=== PATIENT | female | born 1975 | race Caucasian/White ===

== ENCOUNTER → 2017-11-12 16:19 | Outpatient (CLI) | payer OTHER, SELFPAY ==
[2017-11-14 17:16] LABS: Measles Antibodies, IgG <25.0 AU/mL (Immune >29.9); Mumps Abs, IgG <9.0 AU/mL (Immune >10.9)
== END ==
PROVIDERS: PCP Nurse Practitioner Family; Visit Provider Nurse Practitioner Family
DX: Z11.59 Encounter for screening for other viral diseases (principal)
CPT/HCPCS: 36415; 86735; 86762; 86765

== ENCOUNTER → 2017-11-19 13:54 | Outpatient (CLI) | payer OTHER, SELFPAY ==
--- NOTE | 2017-11-19 14:03 | XR_ITS ---
XR chest employee HISTORY: ITS.REASON: TB SCREENING FOR RN CLINICALS ORDERING PHYSICIAN: Juan Alberto Almanza MD PATIENT AGE: 42 years COMPARISON: None available FINDINGS: The cardiomediastinal silhouette and pulmonary vascularity are within normal limits. The lungs are clear without infiltrates, suspicious nodules, or pleural effusions. No acute bony abnormalities. IMPRESSION: Negative chest, no acute finding
== END ==
PROVIDERS: PCP Internal Medicine Adolescent Medicine; Visit Provider Internal Medicine Adolescent Medicine
DX: Z11.1 Encounter for screening for respiratory tuberculosis (principal)

== ENCOUNTER → 2018-01-13 09:30 | Outpatient (CLI) | payer OTHER, SELFPAY ==
--- NOTE | 2018-01-13 10:00 | US_ITS ---
US liver HISTORY: ITS.REASON: ELEVATED LIVER ENZYMES ORDERING PHYSICIAN: Miley Wells PATIENT AGE: 42 years COMPARISON: None FINDINGS: PANCREAS:Unremarkable. No obvious mass or abnormal fluid collection. No ductal dilatation LIVER:There is diffuse increased echogenicity of the liver with decreased through transmission of sound consistent with hepatic steatosis. No focal liver lesion or biliary dilatation is evident. RIGHT KIDNEY:Unremarkable. Normal size and echogenicity. No hydronephrosis GALLBLADDER:No gallstones, gallbladder wall thickening, pericholecystic fluid, or biliary dilatation. Gallbladder did appear somewhat contracted despite the patient returning for second look 4 hours later. IMPRESSION: 1. Fatty liver. 2. No gallstones apparent. Small gallbladder
== END ==
PROVIDERS: PCP Internal Medicine Adolescent Medicine; Visit Provider Nurse Practitioner Family
DX: R74.8 Abnormal levels of other serum enzymes (principal); E11.9 Type 2 diabetes mellitus without complications
CPT/HCPCS: 76705

== ENCOUNTER → 2018-03-10 13:19 | Outpatient (CLI) | payer OTHER, SELFPAY ==
--- NOTE | 2018-03-10 13:21 | US_ITS ---
US thyroid HISTORY: A large thyroid gland, trouble swallowing ITS.REASON: THYROMEGLY ORDERING PHYSICIAN: Holly Tarango PATIENT AGE: 43 years FINDINGS: Right lobe: The right lobe measures 4.2 x 1 x 1.7 cm. There is a 14 x 10 mm isoechoic nodule well circumscribed along the lower pole. This may contain some minimal calcification superiorly. Left lobe: 3.9 x 1.3 x 1.5 cm. 5 mm slightly hypoechoic nodule in the mid polar region. Isthmus: Unremarkable Isoechogenicity noted posterior to the right lobe of the thyroid gland measuring 15 x 6 mm and may represent a parathyroid gland IMPRESSION: Bilateral thyroid nodules as described above with low level of suspicion for malignancy. Consider 6 month follow-up to confirm stability
== END ==
PROVIDERS: PCP Internal Medicine Adolescent Medicine; Visit Provider Nurse Practitioner Family
DX: E04.9 Nontoxic goiter, unspecified (principal)
CPT/HCPCS: 76536

== ENCOUNTER → 2019-09-06 09:39 | Outpatient (CLI) | payer OTHER, SELFPAY ==
[2019-09-06 14:28] LABS: Alanine Aminotransferase 80 U/L (12-78); Albumin Level 4.1 gm/dL (3.4-5.0); Albumin/Globulin Ratio 1.3 (1.1-1.8); Alkaline Phosphatase 108 U/L (46-116); Anion Gap 14.2 mEq/L (5-15); Aspartate Amino Transferase 33 U/L (15-37); Basophils # 0.1 K/mm3 (0-0.2); Basophils % 0.7 % (0.1-2.0); Bilirubin,Total 0.8 mg/dL (0.2-1.0); Blood Urea Nitrogen 13 mg/dL (7-18); Calcium 9.2 mg/dL (8.5-10.1); Carbon Dioxide 26 mmol/L (21.0-32.0); Chloride 105 mmol/L (98-107); Chol/HDL Ratio 6.7 (1-3.5); Cholesterol 193 mg/dL (140-200); Creatinine,Serum 0.69 mg/dL (0.55-1.02); Eosinophils # 0.3 K/mm3 (0.0-0.4); Eosinophils % 2.9 % (0.1-12.0); Estimated Glomerular Filt Rate 93 ml/min (>60); GFR (African American) 112 ML/MIN (>60); Globulin 3.1 gm/dl (1.3-3.2); Glucose 168 mg/dL (74-106); HDL Cholesterol 29 mg/dL (29-89); Hematocrit 46.8 % (37.0-47.0); Hemoglobin 15.7 g/dL (12.2-16.2); LDL Cholesterol 129 mg/dL (0-130); Lymphocytes # 3.5 K/mm3 (0.7-4.5); Lymphocytes % 40.4 % (10-50); Mean Corpuscular HGB Conc 33.4 g/dL (31.8-35.4); Mean Corpuscular Hemoglobin 30.2 pg (27.0-31.2); Mean Corpuscular Volume 90.3 fl (81-99); Mean Platelet Volume 9.8 fl (7.4-10.4); Monocytes # 0.4 K/mm3 (0.1-1.0); Monocytes % 4.1 % (1.7-9.3); Neutrophils # 4.5 K/mm3 (1.8-7.8); Neutrophils % 51.9 % (37.0-80.0); Platelet Count 222 K/mm3 (142-424); Potassium 4.2 mmoL/L (3.5-5.1); Red Blood Count 5.19 M/mm3 (4.20-5.40); Red Cell Distribution Width 12.8 % (11.5-17.5); Sodium 141 mmol/L (136-145); Total Protein,Serum 7.2 gm/dL (6.4-8.2); Triglycerides 175 mg/dL (30-200); VLDL Cholesterol 35 mg/dL (0-40); White Blood Count 8.6 K/mm3 (4.8-10.8)
[2019-09-06 16:20] LABS: Hemoglobin A1C 9.2 % (0.0-7.0)
== END ==
PROVIDERS: PCP Nurse Practitioner Family; Visit Provider Nurse Practitioner Family
DX: E11.9 Type 2 diabetes mellitus without complications (principal); E04.1 Nontoxic single thyroid nodule; E04.9 Nontoxic goiter, unspecified; R63.4 Abnormal weight loss; K92.1 Melena
CPT/HCPCS: 36415; 80053; 80061; 83036; 84443; 85025

== ENCOUNTER 2020-06-19 14:18 | Emergency (ER) | payer MEDICAID, SELFPAY ==
--- NOTE | 2020-06-19 14:47 | HMH.EDUTC ---
[facility] [place] Disposition Clinical Impression: Strep throat Disposition: Home, Self-Care Condition on Discharge: Good Instructions: DI for Strep Throat, Strep Throat Additional Instructions: Drink plenty of fluids. Take tylenol or ibuprofen for pain or fever. Take the medications as directed. Follow up with your regular doctor. GO TO THE ER FOR ANY WORSENING SYMPTOMS Throw your tooth brush away and get a new one. Prescriptions: Amoxicillin/Potassium Clav [Augmentin 875-125 Tablet] 1 tab PO Q12H 10 Days #20 tab Transmission Status: Pending to [facility] predniSONE [Deltasone 10mg tablet] 10 mg PO BID 3 Days #6 tab Transmission Status: Pending to [facility] Fluconazole [Diflucan 150mg tab] 150 mg PO ONCE #1 tab Transmission Status: Pending to [facility] Referrals: Holly Tarango APRN [Primary Care Provider] - Time of Disposition: 15:00 Medical Decision Making - Medical Records Medical records reviewed: No: I reviewed the patient's medical records. - Manjinder Inquiry Pt receiving controlled substance: No Vital Signs: 06/19/20 14:50 Temperature 100.8 F H Temperature Source Oral Pulse Rate [Right Brachial] 108 H Respiratory Rate 20 Blood Pressure [Right Arm] 136/94 H Blood Pressure Mean [Right Arm] 108 Blood Pressure Source [Right Arm] Automatic Cuff Blood Pressure Position [Right Arm] Sitting 02 Sat by Pulse Oximetry 98 Oxygen Delivery Method Room Air - Lab Data Lab results reviewed: Yes: I reviewed the patient's lab results. [facility] [place] HPI - General Stated complaint: Sore throat; fever;chills;body aches Time Seen by Provider: 06/19/20 14:47 - History of Present Illness Provider Complaint: She c/o sore throat since yesterday. She has been running a fever and feeling very bad. She denies any known exposure to COVID-19. - Related Data Previous Rx's Medication Instructions Recorded Amoxicillin/Potassium Clav 1 tab PO Q12H 10 Days #20 tab 06/19/20 [Augmentin 875-125 Tablet] Fluconazole [Diflucan 150mg tab] 150 mg PO ONCE #1 tab 06/19/20 predniSONE [Deltasone 10mg tablet] 10 mg PO BID 3 Days #6 tab 06/19/20 Allergies Allergy/AdvReac Type Severity Reaction Status Date / Time azithromycin [From Zithromax] Allergy Verified 06/19/20 14:55 bupropion [From Wellbutrin] Allergy Verified 06/19/20 14:55 meloxicam [From Mobic] Allergy Verified 06/19/20 14:55 methocarbamol [From Robaxin] Allergy Verified 06/19/20 14:55 pregabalin [From Lyrica] Allergy Verified 06/19/20 14:55 [facility] History - Hepatitis A Screen Attestation statement:: This patient has been screened for Hepatitis A risk factors. I have reviewed the patient's past medical history: Yes ROS Obtained: Yes All systems reviewed & no additional complaints - Constitutional Constitutional: Reports chills, Reports fever(s), Reports poor appetite, Reports malaise - Eyes Eyes: Denies eye discharge - ENT Ears, Nose, Mouth, and Throat: Reports as per HPI - Cardiovascular Cardiovascular: Denies chest pain - Respiratory Respiratory: No chest congestion, No cough Physical Exam - General General appearance: alert, in no apparent distress - Head Head exam: atraumatic, normocephalic, normal inspection - Eye Eye exam: Present: normal appearance, PERRL, EOMI - ENT ENT exam: Present: mucous membranes moist, normal external ear exam - Expanded ENT Exam TM/Canal exam: Bilateral TM: erythema, bulging, effusion Mouth exam: Present: normal external inspection Teeth exam: Present: normal inspection Throat exam: Present: tonsillar erythema, tonsillomegaly, tonsillar exudate. Absent: R peritonsillar mass, L peritonsillar mass - Neck Neck exam: Present: normal inspection, full ROM, trachea midline. Absent: meningismus, lymphadenopathy - Chest Chest inspection: Present: normal inspection, symmetric chest wall rise. Absent: tenderness - Respiratory Respiratory exam: Present: no
[2020-06-19 14:50] VITALS: BP 136/94; PULSE 108; RESP 20; TEMP 38.2; O2SAT 98; BMI 29.0
[2020-06-19 15:00] LABS: UTC Strep Screen (Rapid) Positive (Negative)
[2020-06-19 15:01] VITALS: BP 136/94; PULSE 108; RESP 20; TEMP 38.2; O2SAT 98
== END 2020-06-19 15:05 | disposition home or self-care (01) ==
PROVIDERS: Emergency Provider Nurse Practitioner Family; PCP Nurse Practitioner Family
DX: J02.0 Streptococcal pharyngitis (principal); Z88.1 Allergy status to other antibiotic agents; Z88.8 Allergy status to other drugs, medicaments and biological substances
CPT/HCPCS: 87880; 99201

== ENCOUNTER → 2021-02-28 11:32 | Outpatient (CLI) | payer OTHER, SELFPAY ==
[2021-02-28 13:52] LABS: Basophils # 0.1 K/mm3 (0-0.2); Basophils % 1.1 % (0.1-2.0); Eosinophils # 0.3 K/mm3 (0.0-0.4); Eosinophils % 2.8 % (0.1-12.0); Hematocrit 45.6 % (37.0-47.0); Hemoglobin 15.7 g/dL (12.2-16.2); Lymphocytes # 3.1 K/mm3 (0.7-4.5); Lymphocytes % 34.6 % (10-50); Mean Corpuscular HGB Conc 34.5 g/dL (31.8-35.4); Mean Corpuscular Hemoglobin 31.3 pg (27.0-31.2); Mean Corpuscular Volume 90.7 fl (81-99); Monocytes # 0.3 K/mm3 (0.1-1.0); Monocytes % 3.2 % (1.7-9.3); Neutrophils # 5.2 K/mm3 (1.8-7.8); Neutrophils % 58.3 % (37.0-80.0); Platelet Count 224 K/mm3 (142-424); Red Blood Count 5.03 M/mm3 (4.20-5.40); Red Cell Distribution Width 13.4 % (11.5-17.5); White Blood Count 8.9 K/mm3 (4.8-10.8)
[2021-02-28 14:30] LABS: Chloride 100 mmol/L (98-107); Potassium 4.7 mmoL/L (3.5-5.1); Sodium 137 mmol/L (136-145)
[2021-02-28 14:32] LABS: Blood Urea Nitrogen 12 mg/dl (7-17); Estimated Glomerular Filt Rate 68 ml/min (>60); GFR (African American) 82 ML/MIN (>60)
[2021-02-28 14:33] LABS: Alanine Aminotransferase 84 U/L (12-78); Albumin Level 4.9 g/dl (3.5-5.0); Albumin/Globulin Ratio 1.9 (1.1-1.8); Alkaline Phosphatase 91 U/L (38-126); Anion Gap 16.7 mEq/L (5-15); Aspartate Amino Transferase 57 U/L (14-36); Carbon Dioxide 25 mmol/L (22.0-30.0); Globulin 2.6 g/dL (1.3-3.2); Glucose 328 mg/dl (74-100); Total Protein,Serum 7.5 g/dl (6.3-8.2)
[2021-02-28 15:13] LABS: Hemoglobin A1C 8.9 % (4.0-6.0)
[2021-02-28 15:30] LABS: Activated Partial Thrombo Time 24.9 seconds (22.8-30.6); Prothrombin Time 10.7 seconds (10.1-12.5)
[2021-02-28 16:24] LABS: Erythrocyte Sedimentation Rate 89 mm/hr (0-20)
== END ==
PROVIDERS: Visit Provider Internal Medicine Adolescent Medicine
DX: E11.9 Type 2 diabetes mellitus without complications (principal); I10 Essential (primary) hypertension
CPT/HCPCS: 36415; 80053; 83036; 85025; 85610; 85651; 85730; 86140

== ENCOUNTER → 2021-03-06 07:05 | Outpatient (CLI) | payer OTHER, SELFPAY ==
--- NOTE | 2021-03-06 07:12 | CT_ITS ---
PROCEDURE: CT FACIAL BONES WO CON CLINICAL HISTORY: FACIAL PAIN Facial swelling on lt side of face and jaw COMPARISON: No exams were available for comparison TECHNIQUE: Axial images obtained with sagittal and coronal reformats. All CT scans at the facility use one or more dose reduction, viz: automated exposure control, ma/kV adjustment per patient size (including targeted exams where dose is matched to indication, i.e. head), or iterative reconstruction technique. FINDINGS: Mild mucosal thickening left maxillary sinus with small retention cyst in the roof and floor of the left maxillary sinus. There is mild leftward nasal septal deviation. No abscess or soft tissue mass apparent. There are few small cervical lymph nodes. The maxilla is edentulous. The orbits have an unremarkable appearance. IMPRESSION: No acute finding. Minimal mucosal thickening left maxillary sinus with small retention cyst. No air-fluid levels or other acute anomaly apparent Dictated by: Ion Najera MD 03/07/2021 06:06 Ion Najera MD in [place] 03/07/2021 06:06
== END ==
PROVIDERS: PCP Nurse Practitioner Family; Visit Provider Internal Medicine Adolescent Medicine
DX: R51.9 Headache, unspecified (principal)
CPT/HCPCS: 70486

== ENCOUNTER → 2021-03-15 08:54 | Outpatient (CLI) | payer OTHER, SELFPAY ==
[2021-03-15 13:59] LABS: Basophils # 0.1 K/mm3 (0-0.2); Basophils % 1.1 % (0.1-2.0); Eosinophils # 0.3 K/mm3 (0.0-0.4); Eosinophils % 2.8 % (0.1-12.0); Hemoglobin 14.6 g/dL (12.2-16.2); Lymphocytes # 2.9 K/mm3 (0.7-4.5); Lymphocytes % 30.5 % (10-50); Mean Corpuscular HGB Conc 32.5 g/dL (31.8-35.4); Mean Corpuscular Hemoglobin 30.2 pg (27.0-31.2); Mean Corpuscular Volume 92.8 fl (81-99); Mean Platelet Volume 9.1 fl (7.4-10.4); Monocytes # 0.4 K/mm3 (0.1-1.0); Monocytes % 4.2 % (1.7-9.3); Neutrophils # 5.8 K/mm3 (1.8-7.8); Neutrophils % 61.4 % (37.0-80.0); Platelet Count 204 K/mm3 (142-424); Red Blood Count 4.85 M/mm3 (4.20-5.40); Red Cell Distribution Width 12.6 % (11.5-17.5); White Blood Count 9.4 K/mm3 (4.8-10.8)
[2021-03-15 14:03] LABS: Chloride 102 mmol/L (98-107); Sodium 137 mmol/L (136-145)
[2021-03-15 14:04] LABS: Potassium 4.2 mmoL/L (3.5-5.1)
[2021-03-15 14:06] LABS: Anion Gap 15.2 mEq/L (5-15); Blood Urea Nitrogen 10 mg/dl (7-17); Carbon Dioxide 24 mmol/L (22.0-30.0); Estimated Glomerular Filt Rate 133 ml/min (>60); GFR (African American) 161 ML/MIN (>60)
[2021-03-15 14:07] LABS: Calcium 9.4 mg/dl (8.4-10.2); Glucose 290 mg/dl (74-100)
[2021-03-15 14:15] LABS: C-Reactive Protein 10.3 mg/L (0-4)
[2021-03-15 14:34] LABS: Erythrocyte Sedimentation Rate 7 mm/hr (0-20)
== END ==
PROVIDERS: Visit Provider Nurse Practitioner Family
DX: R70.0 Elevated erythrocyte sedimentation rate (principal)
CPT/HCPCS: 36415; 80048; 85025; 85651; 86140

== ENCOUNTER 2023-10-29 09:45 | Outpatient (RCR) | payer OTHER, SELFPAY ==
--- NOTE | 2023-10-29 11:02 | HMH.PTOPEV ---
PT Outpatient Evaluation Rehab PT Outpatient Evaluation Start: 10/29/23 10:00 Freq: Status: Active Protocol: Document 10/29/23 10:00 PDESEROUX (Rec: 10/29/23 11:02 PDESEROUX [id number]) E-signed By Yaya Espinoza, PT Outpatient Therapy Subjective History Subjective History Pt. is a 48 year old female who presents to [facility] Outpatient Physical Therapy Services in [place] for the initial evaluation this date(10/29/23) w/ c/o subacute and constant RLE knee P!, edema, and catching/locking of insidious onset 4 months ago. Recent diagnostic imaging(MRI) positive for two meniscus tears per pt. report. Pt. denies having injections for current complaint. Pt. reports having no symptom relief w/ initial prescribed Tylenol, stated, it didn't touch my pain. Pt. reports being scheduled and then rescheduled three different times in Sep. , then Oct., and then Nov. for surgery of the RLE knee, but has been denied secondary to insurance. Pt. reports asking her MD to trial Physical Therapy for symptom relief. Pt . reports having an increase in catching or locking in the RLE knee w/ initial standing or ambulation after prolonged sitting. Pt. reports the RLE knee getting real sore and swollen after having a work shift or being on my feet all day. Pt. reports having some symptom relief w/ icing and elevation. Pt. reports current occupational duties at [employer] in [place]. Current medications includes Neurontin/Soma/ Adavan PRN, and Paxil/Mounjaro daily. PMH includes S/P lumbar spine discectomy, S/P removal of a Seroma lumbar spine, Hypertension, Hyperlipidemia, Hysterectomy, DM-II, Anxiety disorder, Depression disorder, and removal of kidney stones. New diagnosis of cancer in past 12 No months? Chief Complaint Pain,Spasms,Stiff,Clicks, Swelling,Catches/Locks,Gives out/Unstable,Paresthesia, Weakness Symptom Type Ache,Throb,Sharp,Dull,Stabbing ,Burning,Numbness,Shooting Symptoms Relieved By Rest/Positioning,Ice,Elevation Symptoms Aggravated By Standing,Bending/Stooping, Physical Activity,Twisting, Walking Prior Functional Limitations None Current Functional Limitations Housework,Standing,Sitting, Squatting,Recreation Activity, Walking,Stairs,Balance,Bending /Stooping Symptom Description Constant and Continuous, Intermittent,Activity Dependent Level of pain today (0-10) 2 Pain scale - at its best (0-10) 1 Pain scale - at its worst (0-10) 10 Hip/Knee Eval Gait Observation General Gait Pattern Observation Antalgic Gait,Decrease Weight Bear (R),Decrease Stride Lngth (L) Assistive Device Assistive Devices None / NA Palpation Tenderness right Knee Palpation Finding Tenderness,Spasm,Trigger Point ,Muscle Guarding Knee Palpation Overall Comment grade 4 +TTP gastroc/HS tendons/lateral and medial jt. line/IT band MMT Hip Flexion Strength Grade 3+ Fair+ Hip Abduction Strength Grade 3+ Fair+ Hip Adduction Strength Grade 3+ Fair+ Hip Extension Strength Grade 4- Good- Gluteus Jose Angel Strength Grade 4- Good- Hip External Rotation Strength Grade 3+ Fair+ Hip Internal Rotation Strength Grade 3+ Fair+ Knee Extension Strength Grade 3+ Fair+ Knee Flexion Strength Grade 3+ Fair+ Knee Extensors Muscle Tone Description Severe Hypertonicity Knee Flexors Muscle Tone Description Severe Hypertonicity ROM Knee Extension Active Range of Motion ( +15 degrees) Knee Extension Passive Range of Motion ( +9 degrees) Knee Flexion Active Range of Motion ( 118 degrees) Knee Flexion Passive Range of Motion ( 121 degrees) Knee ROM Limitations Soft Tissue Tightness, Contracture,Muscle Tone,Pain Sensation LE Dermatome Level L4 Comment decreased light touch sensation in RLE compared to LLE Special Tests Knee Alexi Test Positive Right Outpatient Therapy Assessment Impairments Problems/Impairmments Palpation Tenderness,Impaired Range of Motion,Impaired Strength,Impaired Transfers, Impaired Gait Pattern,Impaired Walking,Impaired Standing, Impaired Sitting,Impaired Household Care,Impaired Stair Climbing,Impaired Incline Stepping,Impaired Stepping on Uneven Surface,Impaired Squatting,Impaired Bending, Impaired Work Activities, Increased Edema,Subjective C/O Pain,Impaired Self Care/Self Management Prognosis Rehab Potential Good Comment w/ HEP compliancy Clinical Impression Consistent with Diagnosis Yes Consistent with RLE meniscal tear Short Term Goals Number of Weeks 2 Decreased Palpation Tenderness Yes: grade 1-2 +TTP to TTP assessment above Decrease Subjective C/O Pain Yes: worse:03/19 Patient to be Ind w/ HEP Yes Group Home Goals Number of Weeks 4-6 Decreased Palpation Tenderness Yes: grade 1 +TTP to TTP assessment above Increase Range of Motion Yes: RLE knee A/PROM WNL grossly Increase Strength Yes: 4+ to 5/5 RLE hip/knee/ ankle MMT scores w/o difficulty Improve Transfers Yes Improve Gait Pattern without Assistive Yes Device Increase Ability to Walk Yes Increase Ability to Stand Yes Increase Ability to Sit Yes Improve Ability to Climb Stairs Yes Improve Tolerance to Work Activities Yes Improve LEFI Score Yes Decrease Edema Yes Decrease Subjective C/O Pain Yes: worse:1-210 Improve Self Care/Self Management Yes Patient to be Ind w/ Advanced HEP Yes Outpatient Therapy Plan of Care Treatment Plan May Include Therapeutic Exercise Including Home Yes Exercise Program Manual Therapy Techniques Yes Neuromuscular Re-education Yes Therapeutic Activities to Return to Yes Previous Functional/Work Level Gait Training Yes ADL/Self Care Education Yes Dry Needling Yes Thermal Modalities Yes Electrical Stimulation Yes Ultrasound/Phonophoresis Yes Iontophoresis Yes Vasopneumatic Compression Pump Yes Massage Yes Eval/Re-Eval Yes Frequency Times per week 2 Duration Number of Weeks 4-6 Addendums This patient is a candidate for social No or vocational rehab? Patient/Guardian verbally acknowledges Yes understanding of treatment program and consents to further treatment? Patient/Guardian verbally acknowledges Yes understanding of diagnosis, prognosis and goals for treatment? Eval Complexity PT Charges 60399 - Low Complexity Shoulder/Elbow Eval Shoulder Objective Measurements Elbow Objective Measurements PHYSICIAN CERTIFICATION: I certify the specified therapy services for Shayy Riddle are required, authorized, and reviewed every 30 days.
== END 2023-12-16 17:55 | disposition home or self-care (01) ==
LOC: PT 09:45
PROVIDERS: PCP Nurse Practitioner Family; Visit Provider Nurse Practitioner Family
DX: M25.561 Pain in right knee (principal)
CPT/HCPCS: 97163